=== PATIENT | female | born 1985 | race Caucasian/White ===

== ENCOUNTER → 2018-04-05 18:14 | Outpatient (CLI) | payer OTHER, SELFPAY ==
[2018-04-05 18:53] LABS: Add Manual Diff / Slide Review NO; Basophils Percent Auto 0.8 % (0-2); Eosinophils Percent Auto 2.7 % (2-4); Hematocrit 42.9 % (36-46); Hemoglobin 14.5 g/dL (12.0-16.0); Lymphocytes Percent Auto 41.7 % (25-40); Mean Corpuscular HGB Conc 33.9 % (30-36); Mean Corpuscular Hemoglobin 29.4 PG (26-34); Mean Corpuscular Volume 86.8 fL (80-100); Monocytes Percent Auto 10.8 % (3-14); Neutrophils Absolute Auto 2600 /uL (3000-5900); Platelet Count 322 X10^3/uL (150-400); Red Blood Cell Count 4.94 X10^6/uL (4.0-5.2); White Blood Cell Count 5.9 X10^3/uL (4.5-11.0)
[2018-04-05 19:02] LABS: Alanine Aminotransferase 25 IU/L (9-52); Albumin Globulin Ratio 1.7 (1.0-2.8); Alkaline Phosphatase 70 U/L (38-126); Aspartate Aminotransferase 21 IU/L (14-36); Bilirubin Total 0.6 mg/dL (0.2-1.3); Blood Urea Nitrogen 16 mg/dL (7-17); Calcium 9.8 mg/dL (8.4-10.2); Carbon Dioxide 27 mmol/L (22-32); Chloride 103 mmol/L (98-107); Estimated Glomerular Filt Rate > 60.0 mL/min (>60); Globulin 2.9 g/dL (1.7-4.1); Glucose 80 mg/dL (70-100); HEMOLYSIS < 15 (0-50); Sodium 143 mmol/L (137-145); Total Protein 7.9 g/dL (6.3-8.2)
== END ==
PROVIDERS: PCP Physician Assistant Medical; Visit Provider Physician Assistant
DX: B34.9 Viral infection, unspecified (principal)
CPT/HCPCS: 36415; 80053; 85025

== ENCOUNTER 2018-04-06 11:06 | Emergency (ER) | payer OTHER, SELFPAY ==
[2018-04-06 11:17] VITALS: BP 141/96; PULSE 88; RESP 18; TEMP 36.6; O2SAT 100
--- NOTE | 2018-04-06 11:32 | DI.RAD.S_ITS ---
PROCEDURE: XR CHEST 2V INDICATIONS: chest pain TECHNIQUE: 2 views of the chest were acquired. COMPARISON: None. FINDINGS: Surgical changes and devices: None. Lungs and pleura: No pleural effusions or pneumothorax. Lungs are clear. Mediastinum: Mediastinal contours are normal. Heart size is normal. Bones and chest wall: No suspicious bony abnormalities. Soft tissues appear unremarkable. IMPRESSION: No acute pulmonary process. Dictated by: Kaelyn Adrian M.D. on 04/06/2018 at 12:32 Approved by: Kaelyn Adrian M.D. on 04/06/2018 at 12:32
[2018-04-06] MEDS: KETOROLAC 60 MG/2 ML VIAL 15 MG IV (11:55)
[2018-04-06] MEDS: SODIUM CHLORIDE 0.9% 1,000 ML 1000 ML IV (11:56)
[2018-04-06 11:59] VITALS: BP 126/97; PULSE 78; RESP 18; O2SAT 99
[2018-04-06 12:13] LABS: Add Manual Diff / Slide Review NO; Basophils Percent Auto 0.7 % (0-2); Eosinophils Percent Auto 1.5 % (2-4); Hematocrit 42.5 % (36-46); Hemoglobin 14.2 g/dL (12.0-16.0); Lymphocytes Percent Auto 35.3 % (25-40); Mean Corpuscular HGB Conc 33.4 % (30-36); Mean Corpuscular Volume 86.7 fL (80-100); Monocytes Percent Auto 9.8 % (3-14); Neutrophils Absolute Auto 2900 /uL (3000-5900); Neutrophils Percent Auto 52.7 % (50-75); Platelet Count 313 X10^3/uL (150-400); Red Cell Distribution Width 12.9 % (11.6-14.8); White Blood Cell Count 5.4 X10^3/uL (4.5-11.0)
[2018-04-06 12:14] LABS: Lipase 68 U/L (23-300)
[2018-04-06 12:16] LABS: Alanine Aminotransferase 18 IU/L (9-52); Albumin 4.9 g/dL (3.5-5.0); Albumin Globulin Ratio 1.6 (1.0-2.8); Alkaline Phosphatase 58 U/L (38-126); Aspartate Aminotransferase 22 IU/L (14-36); Bilirubin Total 0.7 mg/dL (0.2-1.3); Blood Urea Nitrogen 19 mg/dL (7-17); Calcium 9.9 mg/dL (8.4-10.2); Carbon Dioxide 28 mmol/L (22-32); Chloride 103 mmol/L (98-107); Estimated Glomerular Filt Rate > 60.0 mL/min (>60); Glucose 82 mg/dL (70-100); HEMOLYSIS 19 (0-50); Sodium 143 mmol/L (137-145); Total Protein 7.9 g/dL (6.3-8.2)
[2018-04-06 12:18] LABS: D Dimer < 200 ng/mL (<230)
[2018-04-06 12:44] LABS: Troponin I < 0.012 ng/mL (0.01-0.034)
[2018-04-06 13:00] VITALS: BP 128/89; PULSE 75; RESP 22; O2SAT 99
--- NOTE | 2018-04-06 13:32 | ED.CHESTPAIN ---
HPI - Chest Pain General Chief Complaint: Chest Pain Stated Complaint: chest tightness, trouble catching breath History of Present Illness HPI narrative: HPI 33-year-old female no known pertinent past medical history presents for evaluation of several days of poorly characterized mild squeezing type chest discomfort that is without identifiable provoking or relieving factors. Patient takes an estrogen containing contraceptive. Patient denies a family history of sudden or unexpected cardiac . Patient denies recent immobilization, leg trauma, surgery in the last four weeks, hemoptysis, or malignancy in the last 6 months. M/S/F/SocHx notable for: please see HPI; remainder reviewed with patient and in chart. ROS: Negative constitutional, eye, cardiovascular, pulmonary, GI, , MSK, skin, neurologic, psychiatric, endocrine unless noted in the HPI. Exam Gen: Pleasant, non-toxic appearing, resting comfortably. HEENT: NC, AT, PEERL, EOMI. Resp: Clear to auscultation bilaterally, normal work of breathing. Card: RRR with no M/R/G, no crackles in lung bases, no pedal edema, no JVD appreciated. GI: NT/ND Vascular: Both ankles, calves, and thighs of equal size, no calf tenderness to palpation bilaterally. MSK: No chest wall TTP. No visible deformities, strength and tone WNL. Skin: Normal color with no visible lesions. Neuro: AO x 3, no facial asymmetry, vision and hearing WNL. Psych: Mood and affect appropriate. Labs / Imaging (pertinent): WBC 5.4, Hb 14.2, Na 143, K 4.0. Troponin <0.012 D-dimer <200 EKG: SR at 81 bpm, no MS segment depressions, no new ST segment changes, new LBBB, or T-wave changes that would suggest acute ischemia. CXR: No acute cardiopulmonary disease process. MDM Previous chart, nursing note, and vitals reviewed. A: 33-year-old female no known pertinent past medical history presents for evaluation of several days of poorly characterized mild squeezing type chest discomfort that is without identifiable provoking or relieving factors. DDx and Evaluation: * ACS - doubt ACS given a non-ischemic EKG and a negative troponin greater than six hours from maximal symptom onset. * UA - unlikely given the atypical history and alternate diagnosis. HEART score 0 (Hx - 0, EKG - 0, age - 0, risk factors - 0, troponin - 0). * Pericarditis - consider pericarditis unlikely given the lack of MS segment depressions as well as the absence of diffuse ST-segment elevations, lack of reduction of pain when supine, and lack of a friction rub. * Myocarditis - unlikely given the negative troponin and an EKG without characteristic MS-segment or ST-segment changes. * Dissection - dissection is unlikely given symptoms, and lack of mediastinal widening. * PE - PERC positive, Wells' (Signs & Sx of DVT - 0, PE is #1 or equally likelihood - 0, HR > 100 - 0, immobilization of >=3 days or surgery in last 28 days - 0, prior DVT or PE - 0, hemoptysis - 0, malignancy w/ tx in last 6 mo or palliative - 0) zero; as such the patient's negative d-dimer is appropriate for PE rule out/risk stratification. * Mediastinal Air - no evidence by CXR or auscultation. * Pneumothorax - no evidence by CXR or physical exam. * MSK - doubt given lack of reproducibility on exam. * Endocarditis - no identifiable risk factors, patient afebrile, no new murmurs appreciated on exam; doubt. * GI (Esophageal rupture, GERD) - esophageal rupture effectively excluded given the lack of mediastinal widening, non-toxic appearance, and lack of identifiable risk factors. While not definitively excluded, further evaluation of GERD is deferred to an outpatient setting. ED Course: patient given 1 L normal saline and Toradol with significant improvement in symptoms. Vital signs remained stable and within clinically acceptable limits. Disposition: Discharge with PCP follow up. Return to care precautions given verbally and in writing. Impression: Chest Pain. (please reference below for remainder of encounter information) Related Data Home Medications Medication Instructions Recorded Confirmed bupropion HCl [Wellbutrin SR] 300 mg PO QDAY #0 05/25/17 04/06/18 control PO 04/05/18 04/05/18 buspirone 10 mg tablet 10 mg PO BID 04/05/18 04/06/18 Allergies Allergy/AdvReac Type Severity Reaction Status Date / Time No Known Drug Allergies Allergy Verified 04/06/18 11:41 [facility] Social History Smoking Status: Never smoker Exam Initial Vital Signs Initial Vital Signs: Vital Signs Temperature 97.9 F 04/06/18 11:17 Pulse Rate 88 04/06/18 11:17 Respiratory Rate 18 04/06/18 11:17 Blood Pressure 141/96 H 04/06/18 11:17 Pulse Oximetry 100 04/06/18 11:17 Course Orders Ordered: ED Orders 04/06/18 11:32 XR chest 2V Stat Urine Drug Screen, Rapid Stat 04/06/18 11:45 Complete Blood Count AUTO DIFF Stat Comprehensive Metabolic Panel Stat D Dimer Stat Lipase Stat Troponin I Stat Discontinued Medications Sodium Chloride (Normal Saline 0.9%) 1,000 mls @ 1,000 mls/hr IV BOLUS ONE Stop: 04/06/18 12:30 Last Infusion: 04/06/18 13:10 Dose: 0 mls/hr Admin: 04/06/18 11:56 Dose: 1,000 mls/hr Ketorolac Tromethamine (Toradol) 15 mg IV NOW ONE Stop: 04/06/18 11:32 Last Admin: 04/06/18 11:55 Dose: 15 mg Vital Signs - 8 hr 04/06/18 11:17 04/06/18 11:59 04/06/18 13:00 Temperature 97.9 F Pulse Rate 88 78 75 Respiratory Rate Blood Pressure 141/96 H Blood Pressure [Left Arm] 126/97 H 128/89 H Pulse Oximetry 100 99 99 MDM - Chest Pain Lab Data Result diagrams: 04/06/18 11:45 04/06/18 11:45 Lab Results 04/06/18 04/06/18 04/06/18 Range/Units 11:45 11:45 11:45 WBC 5.4 (4.5-11.0) X10^3/uL RBC 4.90 (4.0-5.2) X10^6/uL Hgb 14.2 (12.0-16.0) g/dL Hct 42.5 (36-46) % MCV 86.7 (80-100) fL MCH 29.0 (26-34) PG MCHC 33.4 (30-36) % RDW 12.9 (11.6-14.8) % Plt Count 313 (150-400) X10^3/uL Neut % (Auto) 52.7 (50-75) % Lymph % (Auto) 35.3 (25-40) % Mora % (Auto) 9.8 (3-14) % Eos % (Auto) 1.5 L (2-4) % Baso % (Auto) 0.7 (0-2) % Neut # (Auto) 2900 L (1127-7100) /uL D-Dimer (<230) ng/mL Sodium 143 (137-145) mmol/L Potassium 4.0 (3.4-5.1) mmol/L Chloride 103 (98-107) mmol/L Carbon Dioxide 28 (22-32) mmol/L BUN 19 H (7-17) mg/dL Creatinine 1.00 (0.52-1.04) mg/dL Estimated GFR > 60.0 (>60) mL/min BUN/Creatinine Ratio 19.0 (6-22) Glucose 82 (70-100) mg/dL Calcium 9.9 (8.4-10.2) mg/dL Total Bilirubin 0.7 (0.2-1.3) mg/dL AST 22 (14-36) IU/L ALT 18 (9-52) IU/L Alkaline Phosphatase 58 (38-126) U/L Troponin I < 0.012 (0.01-0.034) ng/mL Total Protein 7.9 (6.3-8.2) g/dL Albumin 4.9 (3.5-5.0) g/dL Globulin 3.0 (1.7-4.1) g/dL Albumin/Globulin Ratio 1.6 (1.0-2.8) Lipase 68 (23-300) U/L 04/06/18 Range/Units 11:45 WBC (4.5-11.0) X10^3/uL RBC (4.0-5.2) X10^6/uL Hgb (12.0-16.0) g/dL Hct (36-46) % MCV (80-100) fL MCH (26-34) PG MCHC (30-36) % RDW (11.6-14.8) % Plt Count (150-400) X10^3/uL Neut % (Auto) (50-75) % Lymph % (Auto) (25-40) % Mora % (Auto) (3-14) % Eos % (Auto) (2-4) % Baso % (Auto) (0-2) % Neut # (Auto) (0699-1989) /uL D-Dimer < 200 (<230) ng/mL Sodium (137-145) mmol/L Potassium (3.4-5.1) mmol/L Chloride (98-107) mmol/L Carbon Dioxide (22-32) mmol/L BUN (7-17) mg/dL Creatinine (0.52-1.04) mg/dL Estimated GFR (>60) mL/min BUN/Creatinine Ratio (6-22) Glucose (70-100) mg/dL Calcium (8.4-10.2) mg/dL Total Bilirubin (0.2-1.3) mg/dL AST (14-36) IU/L ALT (9-52) IU/L Alkaline Phosphatase (38-126) U/L Troponin I (0.01-0.034) ng/mL Total Protein (6.3-8.2) g/dL Albumin (3.5-5.0) g/dL Globulin (1.7-4.1) g/dL Albumin/Globulin Ratio (1.0-2.8) Lipase (23-300) U/L Discharge Plan Departure Prescriptions: No Action buspirone 10 mg tablet 10 mg PO BID RF: 0 control PO RF: 0 bupropion HCl [Wellbutrin SR] 100 MG tablet extended release 12 hr 300 mg PO QDAY Qty: 0 RF: 0
== END 2018-04-06 13:46 | disposition home or self-care (01) ==
PROVIDERS: Emergency Provider Emergency Medicine; Family Provider Physician Assistant Medical; PCP Physician Assistant Medical
DX: R07.9 Chest pain, unspecified (principal)
CPT/HCPCS: 71046; 80053; 83690; 84484; 85025; 85379; 93005; 96361; 96374; 99283; 99284; J1885

== ENCOUNTER → 2020-12-26 12:47 | Outpatient (CLI) | payer OTHER, SELFPAY ==
--- NOTE | 2020-12-26 | DI.MRI.S_ITS ---
PROCEDURE: MR HEAD/BRAIN WO/W CON INDICATIONS: Malignant neoplasm of brain, unspecified TECHNIQUE: Noncontrast axial T1 spin echo, axial T2 fast spin echo, sagittal and axial FLAIR, coronal T2 fast spin echo, axial gradient echo, axial diffusion and ADC through the brain. After the administration of contrast, axial and coronal 3D VIBE or T1 spin echo with fat saturation through the brain. COMPARISON: [facility], , MRI BRAIN W/WO CONTRAST, 11/10/2019, 14:18. FINDINGS: Image quality: Excellent. CSF Spaces: Basal cisterns are patent. No extra-axial fluid collections. Ventricles are normal in size and shape. Brain: At the right temporoparietal junction, there are T2 hyperintense nodules seen, which run along the deep aspect of the cortex. These lesions do not enhance. The appearance is not significantly changed compared to the outside MRI performed 11/10/2019. No midline shift. The brainstem appears normal. Diffusion-weighted images demonstrate no acute ischemic insults. No chronic ischemic insults. Normal intravascular flow voids are present. Skull and face: Calvarial marrow is normal in signal. Orbits appear normal. Sinuses: Sinuses and mastoids appear clear. IMPRESSION: Stable nonenhancing T2 hyperintense nodules seen along the deep aspect of the cortex of the right temporoparietal region. 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 Differential diagnosis also includes focal cortical dysplasia or dysembryoplastic neuroepithelial tumor. Dictated by: Nithin Dumas M.D. on 12/26/2020 at 13:38 Approved by: Nithin Dumas M.D. on 12/26/2020 at 13:42
== END ==
PROVIDERS: Family Provider Physician Assistant Medical; PCP Family Medicine; Referring Provider Psychiatry & Neurology Neurology; Visit Provider Psychiatry & Neurology Neurology
DX: C71.9 Malignant neoplasm of brain, unspecified (principal)
CPT/HCPCS: 70553

== ENCOUNTER → 2021-11-30 09:34 | Outpatient (CLI) | payer OTHER, SELFPAY ==
--- NOTE | 2021-11-30 | DI.MRI.S_ITS ---
PROCEDURE: MR HEAD/BRAIN WO/W CON INDICATIONS: Malignant neoplasm of brain, unspecified TECHNIQUE: Noncontrast axial T1 spin echo, axial T2 fast spin echo, sagittal and axial FLAIR, coronal T2 fast spin echo, axial gradient echo, axial diffusion and ADC through the brain. After the administration of contrast, axial and coronal 3D VIBE or T1 spin echo with fat saturation through the brain. COMPARISON: [facility], , MRI BRAIN W/WO CONTRAST, 11/10/2019, 14:18. [facility], , MR HEAD/BRAIN WO/W CON, 12/26/2020, 12:57. FINDINGS: Image quality: Excellent. CSF Spaces: Basal cisterns are patent. No extra-axial fluid collections. Ventricles are normal in size and shape. Brain: No midline shift. As identified on prior exams, there is a 7 mm x 17 mm area T2/FLAIR nodularity at the right temporoparietal junction. There is no associated enhancement or restricted diffusion. No abnormal susceptibility signal. No abnormal intracranial enhancement. The brainstem appears normal. Diffusion-weighted images demonstrate no acute ischemic insults. No chronic ischemic insults. Normal intravascular flow voids are present. Skull and face: Calvarial marrow is normal in signal. Orbits appear normal. Sinuses: Sinuses and mastoids appear clear. IMPRESSION: Unchanged appearance of subcortical nodular increased signal at the right temporoparietal junction without enhancement. Differential diagnosis includes multinodular and vacuolating neuronal tumor, focal cortical dysplasia or dysembryoplastic neuro epithelial tumor. Dictated by: Kaelyn Adrian M.D. on 11/30/2021 at 11:27 Approved by: Kaelyn Adrian M.D. on 11/30/2021 at 11:37
== END ==
PROVIDERS: Family Provider Physician Assistant Medical; PCP Family Medicine; Referring Provider Psychiatry & Neurology Neurology; Visit Provider Psychiatry & Neurology Neurology
DX: C71.9 Malignant neoplasm of brain, unspecified (principal)
CPT/HCPCS: 70553

== ENCOUNTER → 2023-06-04 12:09 | Outpatient (CLI) | payer OTHER, SELFPAY ==
--- NOTE | 2023-06-04 | DI.MRI.S_ITS ---
PROCEDURE: MR HEAD/BRAIN WO/W CON INDICATIONS: BENIGN NEOPLASM OF BRAIN TECHNIQUE: Noncontrast axial T1 spin echo, axial T2 fast spin echo, sagittal and axial FLAIR, coronal T2 fast spin echo, axial gradient echo, axial diffusion and ADC through the brain. After the administration of contrast, axial and coronal and sagittal 3D VIBE or T1 spin echo with fat saturation through the brain. COMPARISON: [facility], MR, MR HEAD/BRAIN WO/W CON, 11/30/2021, 9:51. FINDINGS: Image quality: Excellent. CSF Spaces: Basal cisterns are patent. No extra-axial fluid collections. Ventricles are normal in size and shape. Brain: No midline shift. No intracranial bleeds . The ill-defined region of subcortical FLAIR signal elevation within the right temporoparietal lobe junction is unchanged, measuring roughly 7 mm x 17 mm. No abnormal intracranial enhancement is present. The brainstem appears normal. Diffusion-weighted images demonstrate no acute ischemic insults. No chronic ischemic insults. Normal intravascular flow voids are present. Skull and face: Calvarial marrow is normal in signal. Orbits appear normal. Sinuses: Right maxillary retention cyst is present, as before. Sinuses and mastoids appear otherwise clear. IMPRESSION: 1. No significant change in right temporoparietal lobe focus as described above. Differential considerations include focal cortical dysplasia, dysembryoplastic neuroepithelial cyst tumor, multinodular and vacuolating neuronal tumor . 2. No acute process. No recent infarct. Dictated by: Casimiro Cruz M.D. on 06/04/2023 at 13:32 Approved by: Casimiro Cruz M.D. on 06/04/2023 at 13:35
== END ==
PROVIDERS: Family Provider Physician Assistant Medical; PCP Family Medicine; Referring Provider Psychiatry & Neurology Neurology; Visit Provider Psychiatry & Neurology Neurology
DX: D33.0 Benign neoplasm of brain, supratentorial (principal)
CPT/HCPCS: 70553